=== PATIENT | female | born 1985 | race Caucasian/White ===

== ENCOUNTER 2018-02-22 20:44 | Inpatient (IN) | payer BC ==
[2018-02-22] MEDS ORDERED: Oxytocin in LR* 20 UNITS/1,000 ML BAG IVPB SCH (22:00)
--- NOTE | 2018-02-22 22:33 | HP ---
General Information - Reason for Visit Pt called to report that she had been experiencing increased vaginal discharge for the last three days, which has been increasing in amount. Pt reports that now it feels like she is experiencing small "gushes" of fluid when the baby moves. Reports occasional ctx. - General Information Maternal Age: 32 Grav: 4 Para: 1 SAB: 2 IEA: 0 Estimated Due Date: 02/26/18 Determined By: LMP Gestational Age in Weeks/Days: 39 3 Maternal Blood Type and Rh: A Positive - Results this Serology/RPR Result: Non-Reactive Rubella Result: Immune HBsAg Result: Negative HIV Result: Negative GBS Culture Result: Positive Past Medical History Delivery History: Hx Complicated Vaginal Delivery - PPH (600 cc), pushed 3.5 hours Pertinent Past Medical History: See Records - Back pain Pertinent Past Surgical History: None Pertinent Family History: Non-Contributory - Antepartal Records Antepartal Records: Reviewed, Complicated by: - Marginal previa, resolved Review of Systems Constitutional: Comfortable CV Complaint: No Respiratory: Shortness of Breath: No Gastrointestinal: No Nausea/Vomiting, Normal Bowel Movement Genitourinary: Leaking Fluid, No Dysuria, No Bleeding Musculoskeletal: No Complaint - occasional ctx Neurological: No Headache, No Visual Changes Movement: Normal Exam Allergies/Adverse Reactions: Allergies No Known Allergies Allergy (Verified 02/22/18 22:40) T-98.5, P-93, R-18, BP-118/71 Lab Values - Entire Visit: Laboratory Tests 02/22/18 21:10 Vag Amniotic Fld Detect Positive - Measurements Height: 5 ft 5 in Weight: 88.904 kg Body Mass Index (BMI): 32.5 Pre- Weight: 68.039 kg - Exam Breast: Breast Exam Deferred CVA: No CVA Tenderness Extremities: Edema - trace pedal edema Heart: Normal Rhythm/Heart Sounds HEENT: No Significant Findings Lungs: Clear Bilaterally Rectal: Rectal Exam Deferred Reflexes: DTR 2+ Thyroid: No Thyromegaly - Abdominal Exam Abdomen Exam: Non-Tender, Fundal Height Consistent with Dates - Ultrasound/Biophysical Profile Ultrasound Status: Not Done Targeted Exam Findings See L&D Outpatient Visit Provider Note for Findings: N/A Estimated Weight: 8# Cervical Exam: 2cm - 2-3 cm Effacement: 80% Station: -1 Presenting Part: Vertex Membrane Status: SROM Amniotic Fluid Evaluation: Positive ROM Plus, Clear Bleeding/Discharge: None EFM Findings - External Monitor Findings Baseline Heart Rate: 145 External Monitor Findings: Accelerations Present, No Pattern of Variable or Late Decelerations, Variability Moderate, Baseline Stable Contractions: Irregular, Mild, 45-90 Seconds Assessment/Plan - Assessment 32 year old at 39 3/7 weeks gestation with prelabor rupture of membranes of unknown duration, suspect up to 3 days. Afebrile, no evidence of acidemia. GBS positive. - Obstetrical Risk Factors Obstetrical Risk Factors: GBS Positive - Plan Plan: Induction, Antibiotic Prophylaxis, Admit - Anticipate Vaginal Delivery Plan Comment: Pt counseled that due to probable prolonged rupture of membranes and GBS status , recommend initiating augmentation with Pitocin, as well as initiation of GBS prophylaxis. Pt agreeable with plan. - Date/Time of Admission Date of Admission: 02/22/18 Time of Admission: 21:52
[2018-02-22] MEDS ORDERED: Penicillin G Potassium IV* 5 MILLION.UNITS VIAL ONE (22:39)
[2018-02-22] MEDS ORDERED: Penicillin G Potassium IV* 5,000,000 UNITS in NS 0.9% 100 ML* 100 ML IVPB ONE (23:00)
[2018-02-22 23:30] LABS: Hematocrit 35 % (35-47); Hemoglobin 12.1 g/dl (12.0-16.0); Mean Corpuscular HGB Conc 35 g/dl (31-36); Mean Corpuscular Hemoglobin 29 pg (27-31); Mean Corpuscular Volume 83 fL (80-97); Mean Platelet Volume 9.5 fL (7.4-10.4); Platelet Count 270 10^3/ul (150-450); Red Blood Count 4.18 10^6/ul (4.00-5.40); Red Cell Distribution Width 14 % (10.5-15); White Blood Count 17.8 10^3/ul (3.5-10.8)
[2018-02-22 23:54] LABS: ABS Basophils 0.1 10^3/ul (0-0.2); ABS Eosinophils 0.3 10^3/ul (0-0.6); ABS Lymphocytes 2.1 10^3/ul (1.0-4.8); ABS Monocytes 1.6 10^3/ul (0-0.8); ABS Neutrophils 13.7 10^3/ul (1.5-7.7); ABS Nucleated RBC 0 10^3/ul; Eosinophil % 1.8 % (0-6); Lymphocyte % 11.8 % (25-47); Nucleated Red Blood Cells % 0.1
[2018-02-23] MEDS: Penicillin G Potassium IV* 2,500,000 UNITS in NS 0.9% 100 ML* 100 ML IVPB SCH ×2 (03:07→07:10)
[2018-02-23] MEDS ORDERED: Acetaminophen TAB* 325 MG PO ONE (03:38)
--- NOTE | 2018-02-23 03:45 | PN ---
Progress Note - Progress Note Date of Service: 02/23/18 SOAP: Subjective: Pt reports ctx are feeling stronger and more frequent, but still comfortable enough to try to doze through them. Reports active FM. C/o mild headache/ neck pain. Objective: FHR 145, moderate variability, + accels, no decels Temp 98.3 UCs every 3-4 minutes Pitocin at 11 mu/ min Assessment: 32 year old at 39 3/7 weeks gestation undergoing IOL for PROM, beginning to get uncomfortable. No evidence of acidemia. Plan: Continue Pitocin augmentation, continue to closely monitor for signs of infection Pt may try nitrous if desired or can get epidural when labor is more active.
[2018-02-23] MEDS ORDERED: OBEPIDURAL* 250 ML EPIDURAL ONE (06:24)
[2018-02-23] MEDS ORDERED: EPHEDrine (Pressors)* 50 MG/ML VIAL IV PUSH PRN (06:46)
[2018-02-23] MEDS ORDERED: Famotidine TAB* 20 MG PO PRN (06:46)
[2018-02-23] MEDS ORDERED: Phenylephrine IV* 40 MCG/ML 10 ML SYRINGE IV PUSH PRN (06:46)
[2018-02-23] MEDS ORDERED: Sodium Citrate/Citric Acid* 15 ML UDC PO PRN (06:46)
[2018-02-23] MEDS ORDERED: OBEPIDURAL* 250 ML EPIDURAL SCH (07:00)
--- NOTE | 2018-02-23 07:34 | PN ---
Progress Note - Progress Note Date of Service: 02/23/18 SOAP: Subjective: Pt reported increased pain with contractions. At 0423, pt examined by this lyric writer and found to be 4cm/ 100%/ 0 station. She was not yet ready for epidural at that time. At 0630 pt felt ready for epidural. Cervical exam not performed. Anesthesia notified and epidural placed by Dr. Hopkins with good relief. After epidural placed, pt felt a "pop" and then a lot of pressure. Denied urge to push. Objective: Cervical exam after epidural found pt to have an anterior lip only, +2, 100 % effaced. FHR baseline 160, + accels, no decels, moderate variability UCs 2-3 minutes, lasting 60-80 seconds Pitocin at 16 mu/ min BP 104/69, pulse 95, temp 97.9 Assessment: 32 year old at 39 3/7 weeks gestation, GBS positive with full prophylaxis, nearing full dilation, no evidence of acidemia Plan: Will begin pushing when pt feels urge to push. Anticipate .
[2018-02-23] MEDS ORDERED: Dibucaine 1% 28.35 GM TUBE PR PRN (09:26)
[2018-02-23] MEDS ORDERED: Witch Hazel PAD* JAR TOPICAL PRN (09:26)
[2018-02-23] MEDS ORDERED: Acetaminophen TAB* 325 MG PO PRN (09:26)
[2018-02-23] MEDS ORDERED: Glycerin ADULT SUPP PR PRN (09:26)
--- NOTE | 2018-02-23 09:41 | PROCNOTE ---
[facility] OB: Delivery Note - Delivery A Date of : 02/23/18 Time of : 09:06 [place] Sex: Female Weight at : 3.576 kg Score 1 Minute: 9 Score 5 Minutes: 9 Gestational Age in Weeks and Days at Delivery: 39 Weeks and 4 Days Delivery Method: Spontaneous Vaginal Labor: Spontaneous - Augmented for PROM Did Patient attempt ?: N/A, No Previous Amniotic Fluid: Clear Estimated Blood Loss: 300 Anesthesia/Analgesia: CEI for Labor Delivered By: Charla Castillo - Nursery Level of Nursery: Regular/Bedside - Perineum Perineal Injury: None/Intact Perineal Repair: None - Events Delivery Events of Note: Pitocin During Labor, Full Course of Antibiotics, ROM > 24 Hours - Additional Delivery Notes Additional Delivery Notes: Pt called to report that she may have been leaking fluid for several days, had thought it was increased discharge but was starting to have more fluid. Pt to L& D for evaluation, and found to have ruptured membranes. Pitocin augmentation initiated as well as GBS prophylaxis. Pt progressed steadily. Eventually she requested and received an epidural for pain relief with good relief. Shortly after receiving the epidural she felt an increased gush of fluid and began to experience increased pressure. Cervical exam found an anterior lip and infant at +2 station. Once pt was fully dilated trial of pushing initiated and pt found to push effectively with ctx. Pt pushed effectively with good descent and soon delivered 's head, OA to CURT, followed quickly by shoulders. placed on maternal abdomen with lusty cry, good tone, FHR > 100 bpm. After pulsation ceased cord clamped x2 and cut. Placenta then delivered, leroy side. Pitocin increased to 250 cc/hr. Fundus firm with minimal bleeding. Examination found perineum to be intact. At this time, mother and infant stable. Anticipate normal course.
[2018-02-23] MEDS ORDERED: Oxytocin in LR* 20 UNITS/1,000 ML BAG IVPB SCH (10:00)
[2018-02-23] MEDS: Ibuprofen TAB* 600 MG PO PRN ×2 (15:24→21:19)
[2018-02-23] MEDS: Docusate CAP* 100 MG PO SCH (20:20)
[2018-02-24] MEDS: Ibuprofen TAB* 600 MG PO PRN ×4 (03:41→22:28)
[2018-02-24 06:18] LABS: ABS Basophils 0 10^3/ul (0-0.2); ABS Eosinophils 0.3 10^3/ul (0-0.6); ABS Lymphocytes 1.9 10^3/ul (1.0-4.8); ABS Monocytes 1.4 10^3/ul (0-0.8); ABS Neutrophils 11.6 10^3/ul (1.5-7.7); ABS Nucleated RBC 0 10^3/ul; Eosinophil % 1.7 % (0-6); Hematocrit 33 % (35-47); Hemoglobin 11.1 g/dl (12.0-16.0); Lymphocyte % 12.4 % (25-47); Mean Corpuscular HGB Conc 34 g/dl (31-36); Mean Corpuscular Hemoglobin 29 pg (27-31); Mean Corpuscular Volume 85 fL (80-97); Mean Platelet Volume 8.9 fL (7.4-10.4); Nucleated Red Blood Cells % 0; Platelet Count 224 10^3/ul (150-450); Red Blood Count 3.87 10^6/ul (4.00-5.40); Red Cell Distribution Width 15 % (10.5-15); White Blood Count 15.2 10^3/ul (3.5-10.8)
[2018-02-24] MEDS ORDERED: Ferrous Gluconate TAB* 324 MG TAB PO SCH (09:00)
[2018-02-24] MEDS: Docusate CAP* 100 MG PO SCH ×4 (10:24→22:29)
[2018-02-25] MEDS: Ibuprofen TAB* 600 MG PO PRN ×2 (04:50→10:47)
[2018-02-25 09:42] VITALS: BP 115/62
[2018-02-25] MEDS: Docusate CAP* 100 MG PO SCH (10:47)
== END 2018-02-25 13:44 | disposition home or self-care (01) | DRG 560 ==
LOC: MCHOBOUT 20:44 → MCHOB 21:52
PROVIDERS: ADMIT Midwife; ATTEND Midwife
PROC: 10E0XZZ Delivery of Products of Conception, External Approach (ICD-10-PCS; principal; 2018-02-23)
PROC: 4A1HXCZ Monitoring of Products of Conception, Cardiac Rate, External Approach (ICD-10-PCS; 2018-02-23)
DX: O42.02 Full-term premature rupture of membranes, onset of labor within 24 hours of rupture (principal); Z37.0 Single live birth; O99.824 Streptococcus B carrier state complicating childbirth; Z3A.39 39 weeks gestation of pregnancy
CPT/HCPCS: 36415; 84112; 85025; 86850; 86900; 86901; A9270-GY; J2540